=== PATIENT | male | born 1945 | race Caucasian/White ===

== ENCOUNTER 2025-07-22 11:21 | Inpatient (IN) | payer MEDICARE, BC ==
[~2025-07-22] VITALS: Ht 188 cm; Wt 69.4 kg
[2025-07-22] MEDS: IV NS 0.9% 1,000 ML BAG IV ONE ×2 (11:40→12:30)
[2025-07-22 11:53] LABS: FRACTIONATED INSPIRED OXYGEN-V 21.0 %; SITE, VBG VBG - N/A; VBG HCO3 20.5 mmol/L (22.0-29.0); VBG MetHb 0.4 % (0.5-1.5); VBG OXYGEN SATURATION 41.7 % (60.0-85.0); VBG PCO2 34.1 mmHg (38.0-54.0); VBG PH 7.397 (7.320-7.430); VBG PO2 25.4 mmHg (23.0-48.0); VBG TOTAL HEMOGLOBIN 12.8 G/dL (13.5-17.5)
[2025-07-22 11:55] LABS: RED CELL DISTRIBUTION WIDTH 16.0 % (11.5-15.0)
[2025-07-22 11:59] LABS: PLATELET COUNT (AUTO) 154 K/uL (150-450); RED BLOOD CELL COUNT(AUTO) 3.92 MIL/uL (4.5-6.0); WHITE BLOOD COUNT (AUTO) 21.4 K/uL (4.3-11.0)
[2025-07-22 12:22] LABS: ASPARTATE AMINOTRANSFERASE 8 U/L (15-37); CALCIUM, SERUM 9.0 mg/dL (8.5-10.1); CREATININE 4.4 mg/dL (0.6-1.3); SODIUM SERUM 135 mmol/L (136-145); TOTAL PROTEIN, SERUM 6.7 g/dL (6.4-8.2); UREA NITROGEN, BLOOD 51 mg/dL (7-18)
[2025-07-22] MEDS ORDERED: MEROPENEM 1 G in IV NS 0.9% 100 ML IV ONE (12:30)
[2025-07-22] MEDS ORDERED: SODIUM POLYSTYRENE SULFONATE 15 G/60 ML BOTTLE ONE (12:38)
[2025-07-22] MEDS ORDERED: INSULIN REGULAR, HUMAN 100 UNIT/ML 10 ML VIAL ONE (12:38)
[2025-07-22] MEDS ORDERED: SODIUM BICARBONATE SYR 50 MEQ/50 ML DISP.SYRIN ONE (12:38)
[2025-07-22 12:41] LABS: LACTIC ACID 4.6 mmol/L (0.4-2.0)
[2025-07-22] MEDS: INSULIN REGULAR, HUMAN 100 UNIT/ML 10 ML VIAL IV ONE (12:43)
[2025-07-22] MEDS ORDERED: ALBUTEROL FS 2.5 MG/3 ML VIAL.NEB ONE (12:47)
[2025-07-22 12:49] LABS: INR 1.14 (0.91-1.10)
[2025-07-22 12:50] VITALS: O2SAT 98
[2025-07-22] MEDS: AZTREONAM 1 G in IV NS 0.9% 100 ML IV ONE (12:50)
[2025-07-22] MEDS: ALBUTEROL FS 2.5 MG/3 ML VIAL.NEB NEB ONE (12:50)
[2025-07-22] MEDS: SODIUM BICARBONATE SYR 50 MEQ/50 ML DISP.SYRIN IV ONE (12:56)
[2025-07-22] MEDS: SODIUM POLYSTYRENE SULFONATE 15 G/60 ML BOTTLE PO ONE (13:15)
[2025-07-22] MEDS ORDERED: PREG50CA PO (13:41)
[2025-07-22] MEDS ORDERED: ALLO100T PO (13:41)
[2025-07-22] MEDS ORDERED: DOCU-141 PO (13:41)
[2025-07-22] MEDS ORDERED: SITA50TA PO (13:41)
[2025-07-22] MEDS ORDERED: TAMS-12 PO (13:41)
[2025-07-22] MEDS ORDERED: ROSU20TA2 PO (13:41)
[2025-07-22] MEDS ORDERED: OXYC5TAB3 PO (13:41)
[2025-07-22] MEDS ORDERED: CALC0.5C11 PO (13:41)
[2025-07-22] MEDS ORDERED: ACETAMINOPHEN PO (13:41)
[2025-07-22] MEDS ORDERED: PANT40TA2 PO (13:41)
[2025-07-22] MEDS ORDERED: GLIP5TAB13 PO (13:41)
[2025-07-22] MEDS ORDERED: PSYL3.4P6 PO (13:41)
[2025-07-22] MEDS ORDERED: PROP15DR EACHEYE (13:41)
[2025-07-22] MEDS ORDERED: NATE60TA4 PO (13:41)
[2025-07-22] MEDS ORDERED: LEVO100T9 PO (13:42)
[2025-07-22] MEDS ORDERED: CYCL5TAB PO (13:42)
[2025-07-22] MEDS: VANCOMYCIN 1 GM in IV D5W 250 ML IV ONE (13:55)
[2025-07-22] MEDS ORDERED: MAG HYDROX/AL HYDROX/SIMETH 30 ML UDC PO PRN (14:00)
[2025-07-22] MEDS ORDERED: Z GUARD REMEDY 4 OZ OINT TP PRN (14:00)
[2025-07-22] MEDS ORDERED: ZOLPIDEM TARTRATE 5 MG TABLET PO PRN (14:00)
[2025-07-22] MEDS ORDERED: MAGNESIUM HYDROXIDE 30 ML UDC PO PRN (14:00)
[2025-07-22] MEDS ORDERED: ONDANSETRON HCL/PF 4 MG/2 ML VIAL IVP PRN (14:00)
[2025-07-22 14:15] LABS: APPEARANCE,URINE CLEAR (CLEAR); BLOOD, URINE Negative Ery/uL (NEGATIVE); LEUKOCYTE ESTERASE ,URINE Negative (NEGATIVE); NITRITE, URINE NEGATIVE (NEGATIVE); UGLUCOSE Negative (NEGATIVE)
[2025-07-22] MEDS: MEROPENEM 500 MG in IV NS 0.9% 50 ML IV SCH (17:05)
[2025-07-22] MEDS: IV NS 0.9% 1,000 ML IV SCH (17:06)
[2025-07-22 20:00] VITALS: BP 104/59; TEMP 98.2; O2SAT 99
[2025-07-22] MEDS ORDERED: DEXTROSE 50%-WATER 50 ML DISP.SYRIN IV PRN (20:30)
[2025-07-22] MEDS: BLOOD SUGAR DIAGNOSTIC 1 EACH STRIP VI SCH (21:28)
[2025-07-22] MEDS: INSULIN REGULAR, HUMAN 100 UNIT/ML 3 ML VIAL SQ PRN (21:29)
[2025-07-23] VITALS: BP 110/56; TEMP 100.4; O2SAT 99
[2025-07-23 04:00] VITALS: BP 100/54; TEMP 97.9; O2SAT 97
[2025-07-23 08:00] VITALS: BP 109/62; TEMP 98; O2SAT 98
[2025-07-23 08:39] LABS: CALCIUM, SERUM 7.7 mg/dL (8.5-10.1); CREATININE 3.0 mg/dL (0.6-1.3); PHOSPHORUS 3.2 mg/dL (2.5-4.9); SODIUM SERUM 142.0 mmol/L (136-145); UREA NITROGEN, BLOOD 43.0 mg/dL (7-18)
[2025-07-23 08:53] LABS: PLATELET COUNT (AUTO) 103 K/uL (150-450); RED BLOOD CELL COUNT(AUTO) 3.39 MIL/uL (4.5-6.0); RED CELL DISTRIBUTION WIDTH 15.9 % (11.5-15.0); WHITE BLOOD COUNT (AUTO) 13.1 K/uL (4.3-11.0)
[2025-07-23] MEDS: *INSULIN REGULAR(HUMULIN R)HUM 100 UNIT/ML VIAL SQ PRN (09:54)
[2025-07-23] MEDS ORDERED: DOCUSATE SODIUM 100 MG CAPSULE PO PRN (11:30)
[2025-07-23 12:00] VITALS: BP 108/56; TEMP 98.3; O2SAT 96
[2025-07-23] MEDS ORDERED: oxyCODONE IR immediate release 5 MG TABLET PO PRN (12:00)
[2025-07-23] MEDS ORDERED: PSYLLIUM SEED 1 PKT PACKET PO SCH (12:00)
[2025-07-23 16:00] VITALS: BP 121/63; TEMP 98.2; O2SAT 99
[2025-07-23] MEDS: PREGABALIN 25 MG CAPSULE PO SCH (18:43)
[2025-07-23 20:00] VITALS: BP 108/53; TEMP 98.4; O2SAT 95
[2025-07-24] VITALS: BP 100/52; TEMP 98.8; O2SAT 95
[2025-07-24 04:00] VITALS: BP 122/71; TEMP 97.3; O2SAT 95
[2025-07-24 07:51] LABS: PLATELET COUNT (AUTO) 83 K/uL (150-450); RED BLOOD CELL COUNT(AUTO) 3.22 MIL/uL (4.5-6.0); RED CELL DISTRIBUTION WIDTH 15.6 % (11.5-15.0); WHITE BLOOD COUNT (AUTO) 8.6 K/uL (4.3-11.0)
[2025-07-24 08:00] VITALS: BP 111/63; TEMP 100; O2SAT 95
[2025-07-24] MEDS: LEVOTHYROXINE SODIUM 100 MCG TABLET PO SCH (08:15)
[2025-07-24] MEDS: PANTOPRAZOLE 40 MG TABLET.DR PO SCH (08:15)
[2025-07-24] MEDS: CALCITRIOL 0.25 MCG CAPSULE PO SCH (08:15)
[2025-07-24] MEDS: ALLOPURINOL 100 MG TABLET PO SCH (08:15)
[2025-07-24] MEDS: TAMSULOSIN 0.4 MG CAP.SR.24H PO SCH (08:15)
[2025-07-24] MEDS: ACETAMINOPHEN 325 MG TABLET PO PRN (08:15)
[2025-07-24 08:17] LABS: CALCIUM, SERUM 7.3 mg/dL (8.5-10.1); CREATININE 2.3 mg/dL (0.6-1.3); PHOSPHORUS 1.8 mg/dL (2.5-4.9); SODIUM SERUM 142.0 mmol/L (136-145); TOTAL PROTEIN, SERUM 5.5 g/dL (6.4-8.2); UREA NITROGEN, BLOOD 30.0 mg/dL (7-18)
[2025-07-24 08:20] LABS: CREATINE KINASE, TOTAL 91.0 U/L (39-308)
[2025-07-24 08:54] LABS: ASPARTATE AMINOTRANSFERASE 32.0 U/L (15-37)
[2025-07-24] MEDS ORDERED: POLYVINYL ALCOHOL 15 ML BOTTLE EACHEYE PRN (09:30)
[2025-07-24] MEDS: MAGNESIUM OXIDE 400 MG TABLET PO ONE (09:42)
[2025-07-24] MEDS: POTASSIUM CHLORIDE 20 MEQ TAB.PRT.SR PO ONE (09:43)
[2025-07-24 11:02] LABS: CREATININE, URINE 43.8 MG/DL (30.0-125.0); URINE SODIUM, RANDOM 83.0 mmol/l (40-220); URINE TOTAL PROTEIN 90.1 mg/dL (0-11.9)
[2025-07-24 11:07] LABS: APPEARANCE,URINE TURBID (CLEAR); BLOOD, URINE 3+ Ery/uL (NEGATIVE); LEUKOCYTE ESTERASE ,URINE 3+ (NEGATIVE); NITRITE, URINE NEGATIVE (NEGATIVE); UGLUCOSE NEGATIVE (NEGATIVE)
[2025-07-24 11:31] LABS: ADD URINE CULTURE YES; SQUAMOUS EPITHELIAL CELL,UR Few /HPF (None Seen)
[2025-07-24 11:34] LABS: EOSINOPHIL,URINE None Seen
[2025-07-24 11:40] LABS: BASOPHILS % (MANUAL) 0 % (0.0-2.0); EOSINOPHILS % (MANUAL) 0 % (0-4); LYMPHOCYTES % (MANUAL) 7 % (16-48); MONOCYTES % (MANUAL) 5 % (0-11.0); NEUTROPHILS % (MANUAL) 88 (42-76); PLATELET ESTIMATE DECREASED
[2025-07-24 12:00] VITALS: BP 110/59; TEMP 97.3; O2SAT 95
[2025-07-24] MEDS: MENTHOL/CETYLPYRD (CEPACOL) 1 LOZ LOZENGE PO PRN (14:04)
[2025-07-24 16:00] VITALS: BP 107/59; TEMP 97.9; O2SAT 97
[2025-07-24] MEDS: K PHOS NEUTRAL 250 MG TABLET PO ONE (16:05)
[2025-07-24 20:00] VITALS: BP 108/65; TEMP 98.2; O2SAT 99
[2025-07-25] VITALS: BP 108/65; TEMP 98.2; O2SAT 99
[2025-07-25 04:00] VITALS: BP 110/70; TEMP 98; O2SAT 99
[2025-07-25 08:00] VITALS: BP 116/61; TEMP 98.1; O2SAT 95
[2025-07-25 08:29] LABS: PLATELET COUNT (AUTO) 77 K/uL (150-450); RED BLOOD CELL COUNT(AUTO) 2.95 MIL/uL (4.5-6.0); RED CELL DISTRIBUTION WIDTH 15.1 % (11.5-15.0); WHITE BLOOD COUNT (AUTO) 6.8 K/uL (4.3-11.0)
[2025-07-25] MEDS ORDERED: LOPERAMIDE HCL (2 MG CAP) 2 MG CAPSULE PO PRN (09:00)
[2025-07-25 09:02] LABS: ASPARTATE AMINOTRANSFERASE 39.0 U/L (15-37); CALCIUM, SERUM 7.2 mg/dL (8.5-10.1); CREATININE 2.0 mg/dL (0.6-1.3); PHOSPHORUS 1.6 mg/dL (2.5-4.9); SODIUM SERUM 143.0 mmol/L (136-145); TOTAL PROTEIN, SERUM 5.0 g/dL (6.4-8.2); UREA NITROGEN, BLOOD 22.0 mg/dL (7-18)
[2025-07-25 09:07] LABS: PTH, INTACT 52 pg/mL (15-65)
[2025-07-25] MEDS ORDERED: CEPH-570 PO (10:10)
[2025-07-25] MEDS: NEUTRA PHOS 1 POWD.PACKET PO ONE (10:49)
[2025-07-25] MEDS: POTASSIUM CHLORIDE 20 MEQ TAB.PRT.SR PO ONE (10:50)
[2025-07-25] MEDS: MAGNESIUM OXIDE 400 MG TABLET PO SCH (10:50)
[2025-07-25 11:38] LABS: EOSINOPHILS % (MANUAL) 2 % (0-4); LYMPHOCYTES % (MANUAL) 16 % (16-48); MONOCYTES % (MANUAL) 11 % (0-11.0); NEUTROPHILS % (MANUAL) 71 (42-76); PLATELET ESTIMATE DECREASED
[2025-07-25 12:00] VITALS: BP 116/61; TEMP 98.1; O2SAT 95
[2025-07-25] MEDS: THERAHONEY GEL 1.5 OZ TUBE TP SCH (12:40)
[2025-07-25] MEDS ORDERED: K PHOS NEUTRAL 250 MG TABLET PO ONE (16:00)
== END 2025-07-25 16:15 | disposition home health service (06) | DRG 637 ==
LOC: ER 11:25 → MEDSG1 16:17 → TELE1 16:27 → MEDSG1 07-24 13:07
PROVIDERS: ADMIT Internal Medicine; ATTEND Internal Medicine
DX: E11.00 Type 2 diabetes mellitus with hyperosmolarity without nonketotic hyperglycemic-hyperosmolar coma (NKHHC) (principal); L89.153 Pressure ulcer of sacral region, stage 3; N17.0 Acute kidney failure with tubular necrosis; E87.1 Hypo-osmolality and hyponatremia; N39.0 Urinary tract infection, site not specified; R65.10 Systemic inflammatory response syndrome (SIRS) of non-infectious origin without acute organ dysfunction; E89.0 Postprocedural hypothyroidism; D64.9 Anemia, unspecified; E83.39 Other disorders of phosphorus metabolism; E83.42 Hypomagnesemia; E83.89 Other disorders of mineral metabolism; Z20.822 Contact with and (suspected) exposure to COVID-19; Z85.6 Personal history of leukemia; R53.1 Weakness; Z92.21 Personal history of antineoplastic chemotherapy; E87.5 Hyperkalemia; N40.1 Benign prostatic hyperplasia with lower urinary tract symptoms; Z88.0 Allergy status to penicillin; D72.829 Elevated white blood cell count, unspecified
CPT/HCPCS: 36415; 71045-TC; 76770-TC; 80048-TC; 80053-TC; 80076-TC; 81001; 82010-TC; 82550-TC; 82570-TC; 82803-TC; 82962-TC; 83605-TC; 83690-TC; 83735-TC; 83970; 84100-TC; 84132-TC; 84155; 84165; 84300-TC; 84484-TC; 85025-TC; 85027-TC; 85730-TC; 87040-TC; 87086-TC; 97112-TC; 97116-TC; 97530-TC; A4223; G0378; J1815; J2185; J3373; J3490; J7030; J7060